=== PATIENT | male | born 1950 | race Caucasian/White ===

== ENCOUNTER 2020-11-08 12:56 | Emergency (ER) | payer OTHER ==
[~2020-11-08] VITALS: Ht 180.3 cm; Wt 90.7 kg
[2020-11-08] MEDS ORDERED: FLOMAX0.4 MG PO (14:44)
[2020-11-08] MEDS ORDERED: NOVOLOG100 UNIT/M SUBQ (14:45)
[2020-11-08] MEDS ORDERED: AVODART0.5 MG PO (14:45)
[2020-11-08] MEDS ORDERED: LANTUS SUBQ (14:45)
[2020-11-08] MEDS ORDERED: METFORMIN HCL500 MG PO (14:46)
[2020-11-08] MEDS ORDERED: LIPITOR 40 MG T40 M1 PO (14:46)
[2020-11-08] MEDS ORDERED: PRINIVIL40 MG PO (14:46)
[2020-11-08] MEDS ORDERED: ASA81BEC PO (14:47)
[2020-11-08] MEDS ORDERED: CARVEDILOL12.5 MG PO (14:47)
[2020-11-08] MEDS ORDERED: CLONAZEPAM 0.50.5 M1 PO (14:47)
[2020-11-08 20:37] VITALS: BP 179/87
== END 2020-11-08 20:42 ==
LOC: ER 12:56
DX: R45.851 Suicidal ideations (principal); E11.9 Type 2 diabetes mellitus without complications; I10 Essential (primary) hypertension; F32.9 Major depressive disorder, single episode, unspecified; Z79.4 Long term (current) use of insulin; Z79.82 Long term (current) use of aspirin; Z79.899 Other long term (current) drug therapy; Z20.822 Contact with and (suspected) exposure to COVID-19

== ENCOUNTER 2020-11-08 17:01 | Inpatient (IN) | payer OTHER ==
[~2020-11-08] VITALS: Ht 182.9 cm; Wt 90.8 kg
[~2020-11-08 17:01] MED LIST: ASA81BEC PO; AVODART0.5 MG PO; CARVEDILOL12.5 MG PO; CLONAZEPAM 0.50.5 M1 PO; FLOMAX0.4 MG PO; LANTUS SUBQ; LIPITOR 40 MG T40 M1 PO; METFORMIN HCL500 MG PO; NOVOLOG100 UNIT/M SUBQ; PRINIVIL40 MG PO
[2020-11-08 21:50] VITALS: BP 150/82
--- NOTE | 2020-11-08 21:53 | NUR ---
70 YEAR OLD MALE ARRIVES VIA WC TO UNIT ACCOMPNIED BY ER STAFF AT 2100-REPORTED TO HAVE BEEN DISCHARGED FROM [facility] THIS AM AND BECAME OVERWHELMED AND SUICIDAL UPON HIS RETURN HOME. HAD THOUGHTS OF INJECTING "ALL OF MY INSULIN" AND THAT SCARED ME SO I WENT OUTSIDE AND STARTED YELLING AND [facility] NEIGHBORS CALLED AN AMBULANCE. TEARFUL AND ANXIOUS AT TIMES THROUGHOUT INTERVIEW-IS COOPERATIVE AND ORIENTED X4-ABLE TO PROVIDE HISTORY AND [id number] INCIDENTS LEADING TO ADMIT. DENIES ACTIVE SI AT THIS TIME STATING "I FEEL SAFE HERE-ITS JUST WHEN I GET HOME I FEEL SO ALONE AND OVERWHELMED-I CAN'T HANDLE IT" GAIT STEADY WITHOUT ASSIST. BS OBTAINED AND PROVIDED WATER AND SNACK-VS AND HT/WT OBTAINED-Hussain BENTLEY CONTACTED-ADMIT ORDERS RECEIVED.
--- NOTE | 2020-11-09 00:15 | NUR ---
REMAINS AWAKE AND RESTLESS AT 2230-KLONOPIN 0.5MG PO PRN IN ADDITION TO SCHEDULED REMERON 7.5MG PO-WILL CONTINUE TO MONITOR.
--- NOTE | 2020-11-09 06:32 | NUR ---
APPEARS TO REST QUIETLY IN BED WITH EYES CLOSED FOR LONG INTERVALS THROUGHOUT NIGHT. RESPIRATIONS EVEN/REGULAR.
[2020-11-09 08:49] VITALS: BP 93/71
--- NOTE | 2020-11-09 14:10 | NUR ---
Assumed pt care at 0700. pt was alert and oriented x4. pt was calm and co-operative with care. pt took meds whole. no difficulty noted during multimedia author. pt ambulates with a steady gait. pt denies si/hi. denies pain. no sign of acuted distress noted during assessments. upon assessments pt stated his condition of overactive bladder syndrome makes him incontinent of urine sometimes. zguard was given to pt for preventative measure. pt participated in groups. will continue to monitor.
--- NOTE | 2020-11-09 15:06 | NUR ---
SW completed assessment and treatment plan.
--- NOTE | 2020-11-09 15:15 | NUR ---
SW received a call from Divine Rodriguez the sleeping car conductor at [facility] and [facility]. Divine reported patients [facility] [place], she report patient was discharged from and later called the ambulance reporting he is SI. Divine can be reached at [phone].
[2020-11-09 20:09] VITALS: BP 131/78
--- NOTE | 2020-11-10 03:14 | NUR ---
Assumed care for pt at 1900. Pt out in day room watching tv at start of shift. Pt cooperative with HS assessment and complaint with medications. Pt takes meds whole with water. Pt reports anxiety and feeling anxious. PRN Klonopin 0.5 mg administered. Pt reported upon follow up that PRN effective. Pt denies pain, depression, SI/HI at time of assessment. Pt HS blood sugar was 272 and pt received 6 Units of insulin per sliding scare. Pt has been calm and cooperative. Pt is concerned that he does not have orders for oxybutin, stating that he takes that with his flomax. Pt is wanting to follow up with doctor about this as he stats it helps his bladder spasms. Pt is on q14 minute checks for safety. Will continue to monitor for any changes in mood or behaviors.
[2020-11-10 09:21] VITALS: BP 154/95
--- NOTE | 2020-11-10 12:46 | NUR ---
ANXIOUS FACIAL EXPRESSION AND SPEECH IS LOUD SLIGHTLY PRESSURED HOWEVER DURING 1;1 INTERACTION WITH STAFF DENIES FEELING ANXIOUS RATING ANXIETY A 4OR5 ON 1-10 SCALE. DENIES SI/SH THOUGHTS STATING "I HAVENT HAD ANY SINCE I GOT TO THE HOSPITAL IT IS JUST WHEN I'M HOME-I WOULDN'T TRUST MYSELF TO GO BACK HOME RIGHT NOW" DESCRIBES DEPRESSIVE SYMPTOMS "THE SAME WHEN I GOT HERE" "NOT ANY BETTER BUT NOT ANY WORSE" IS VISIBLE IN [place] BUT USUALLY SITS ALONE-AWAY FROM PEERS WITH LITTLE NOTED SOCIAL INTERACTION. DENIES PAIN. GAIT STEADY. BLOOD SUGARS CHECKED AC MEALS PER ORDER-IS EXPRESSING FRUSTRATION OVER DIET SELECTIONS STATING "NO WONDER MY BLOOD SUGAR IS HIGH-I SHOULDN'T HAVE ANY OF THIS" REFERRING TO LUNCH PROVIDED.
[2020-11-10 13:58] VITALS: BP 139/82
--- NOTE | 2020-11-10 16:36 | NUR ---
DURING 11 THIS PM PT MENTIONS THAT HE FELT BETTER AFTER HE STARTED ON LEXAPRO AT [facility]- STATES HE DOES NOT KNOW WHY LEXAPRO WAS NOT ON CURRENT MED LIST WHEN ADMITTED HERE-WILEY OBTAINED AND FAXED TO [facility] TO OBTAIN COMPLETE LIST OF DISCHARGE MEDICATIONS.
[2020-11-10 19:41] VITALS: BP 115/67
--- NOTE | 2020-11-11 03:32 | NUR ---
Assumed care of pt at 1900. Pt in his room at time of shift change. Pt calm and cooperative with assessments and medication complain. Pt reports anxiety at a 6. Pt rates depression as a 6-7. Pt denies SI in hospital setting and feels safe here; pt does state he does not know what he would do outside hospital. Pt had PRN Klonipin 0.5 mg at HS for anxiety which was effective. Last BM was on 11/10/20. Pt on 12 minute rounds for safety. Continue to monitor for changes in mood/behaviors.
[2020-11-11 11:36] VITALS: BP 126/85
[2020-11-11 12:00] VITALS: BP 126/85
[2020-11-11 19:49] VITALS: BP 147/78
[2020-11-11 20:20] VITALS: BP 147/78
--- NOTE | 2020-11-12 04:57 | NUR ---
PATIENT SAT UP IN DINING ROOM THIS EVENING WATCHING TV AND SOCIALIZING. HE HAS BEEN CALM AND COOPERATIVE. HE DENIES SI/HI/AVH. HE DENIES PAIN. HE DID GET WEEPY WHEN TALKING ABOUT HOW HE WAS WORRIED ABOUT HIS CAT AND STATING THAT THE CAT DIDN'T UNDERSTAND WHAT WAS GOING ON AND HE WAS WANTING TO MAKE SURE IT IS OK. HE THINKS HIS NEIGHBOR IS FEEDING IT. HE IS ALSO CONCERNED ABOUT IF HE WILL HAVE A PLACE TO GO AFTER THIS VISIT.HE STATES HE HAS NO ELECTRICITY,WATER,OR HEAT IN HIS HOME AND THAT THE ROOF IS COMING DOWN. PT IS A/0X4. HE TOOK HIS MEDS WHOLE WITH WATER. HE DENIES PAIN. STATES HE HAD A BM ON 11/11/20. BED IN LOW POSITION. ROUTINE ROUNDS TO ASSESS SAFETY AND STATUS OF PATIENT.
[2020-11-12 10:05] VITALS: BP 154/86
--- NOTE | 2020-11-12 17:06 | NUR ---
MT recieved a call from Divine Rodriguez, [facility] window caser. Divine provided history on the Pt. Pt's lives in a hoarder house with no utilies. Divine is working on getting the home condemed. Pt does not want to go back to his home. SW did speak to Pt. Pt confirmed he is willing to go to a long-term at this time but would like to eventually transition to an apartment .
--- NOTE | 2020-11-12 17:16 | NUR ---
SW sent a referral to [facility]. Pt was accepted by [facility] and Chava.
--- NOTE | 2020-11-12 18:28 | NUR ---
Alert and orientated X4. Denies SI/HI. Up ambulating in unit with regular, steady gait. Conversive with peers and staff. Takes meds whole. Breath sounds clear. Reg HR auscultated. Color pink with brisk capillary refill and palpable peripheral pulses. Independent with voiding. Active bowel sounds over soft, rounded abdomen. Currently concerned about appointment at for tomorrow afternoon. No s/o distress.
[2020-11-12 19:37] VITALS: BP 147/76
[2020-11-13 00:32] VITALS: BP 147/76
--- NOTE | 2020-11-13 01:23 | NUR ---
Assumed care on 11/12/20 @ 1900, Retired to bed @ 1999, awakened to give meds @ 2100, then returned to sleep. Awakened @ about midnight and spent some time in the day room. Speaks loudly disturbing the sleeping community. Socializing with peers who are also awake in the day room. Returns to bed and is sleeping at this writing. Will continue to monitor as per unit protocol for safety and comfort.
--- NOTE | 2020-11-13 15:24 | NUR ---
0900 MT spoke with Divine Rodriguez and informed Pt has been accepted to a facility. Also that Pt need someone to go to a neighbors home to pepper picker his wallet, medications, and cell phone. Divine stated she would be able to pick those items up and bring them to the hospital. 1100 SW and Pt called Divine left a message with the neighbors address. 1245 SW recieved a call from Divine. Divine stated she was at the Pt's home and the neighbor did not have Pt's property. SW had Pt come to office to speak with Divine. Divine and a neighbor searched the Pt's home and did not find the wallet or cell phone. Divine was able to find Pt's medication and will bring to the hospital. Pt was a bit disappointed about the wallet and cell phone but stated he could call the bank for a replacement card.
--- NOTE | 2020-11-13 15:35 | NUR ---
MT spoke with Sadie Tate, , with [facility] concerning discharge. Sadie stated [facility] can accept Pt on 11/14/2020. D/C set for 11/14/2020 @ 10 am. [facility] will [facility] he Pt
--- NOTE | 2020-11-13 16:10 | NUR ---
Alert and orientated X4. Denies SI/HI. Irritated this AM. Exaggerated behavior. States his R hip hurts and then slaps his R buttock to show where pain is. Refuses tylenol but states it is a 7-8/10. Also wrote down shoulder pain but did not mention, only hip pain. Also states he is light headed but is able to ambulate with regular gait. No s/o resp distress but wrote down that he is short of breath. Focused on COVID vaccine, states he has appointment today and wants to leave hospital to get it and then come back. Settled down mid morning and has been calm remainder of shift. Breath sounds clear. Reg HR auscultated. Color pink with brisk capillary refill and palpable peripheral pulses. Independent with voiding. Active bowel sounds over soft, rounded abdomen. States he had a BM this AM. Participating in groups. Home medications delivered by telephonic case manager. Clonazepam delivered to pharmacy. Rest of meds locked up in [facility] pending discharge tomorrow.
[2020-11-13 19:48] VITALS: BP 151/88
[2020-11-13 23:31] VITALS: BP 151/88
--- NOTE | 2020-11-14 03:35 | NUR ---
Assumed care for pt at 1900. Pt up in dining room watching tv and interacting with peers. Pt A&O x3. Pt compliant with assessment and medications. Pt up throughout most of night and slept very little. Pt very focused on his pending discharge tomorrow and has asked staff several questions about things he is worried about, such as his phone, wallet and whether or not he will have any clothing to wear when he discharges from hospital. Pt can become somewhat irritable at times, but has been easily redirected. Pt is on q 12 min checks for safety. Pt denies depression, SI/HI. Pt denied pain at time of assessment, but stated he had had right hip pain and bilateral shoulder pain earlier. Will continue to monitor pt for changes mood and behaviors.
[2020-11-14 08:10] VITALS: BP 168/90
[2020-11-14] MEDS ORDERED: NAPROXEN250 MG PO (08:58)
[2020-11-14] MEDS ORDERED: LEXAPRO 10 MG T10 M1 PO (08:58)
[2020-11-14] MEDS ORDERED: GLUCOPHAGE1000 MG PO (08:59)
[2020-11-14] MEDS ORDERED: GLYBURIDE 5 MG T5 M1 PO (08:59)
[2020-11-14] MEDS ORDERED: OXYBUTYNIN 5 MG5 M1 PO (09:00)
--- NOTE | 2020-11-14 10:25 | NUR ---
DISCHARGE INSTRUCTIONS REVIEWED WITH PT HE STATES UNDERSTANDING AND DENIES QUESTIONS/CONCERNS. PERSONAL BELONGINGS AND MEDICATIONS SECURED AND SENT WITH PT AT TIME OF DC. ASSISTED WITH SHAVE AND PROVIDED WITH CLOTHING TO WEAR HOME. DENIES SI/SH/HI AT TIME OF DC. DOES REPORT FEELING ANXIOUS RE NEW PLACEMENT STATING "IM WORRIED IM NEVER GOING TO BE ABLE TO GET OUT OF THERE" DENIES PAIN AT TIME OF DC. KLONOPIN 0.5MG GIVEN PO PRN AT 0930 WITH AM MEDS FOR ANXIETY RATED A 10 ON 1-10 SCALE R/T DC. DOES STATE IT "IS HELPING BUT IM STILL REALLY NERVOUS" AT TIME OF DC.
--- NOTE | 2020-11-16 14:37 | D ---
[facility] [place] [address] DISCHARGE SUMMARY Name: ROC FLORES Room #: 524B-B [facility] IN M.R.#: [id number] Admission: 11/08/20 Attend Phys: Cayetano Roth DO Discharge: 11/14/20 Date of : 48 Report #: [id number] THIS REPORT FOR: cc: Meliza Farrell Mohammad K. DO Kerstein, Andrew H. DO ~ DATE OF SERVICE: 11/14/2020 INPATIENT PSYCHIATRIC DISCHARGE SUMMARY ATTENDING PHYSICIAN: Cayetano Roth DO. MEDICAL DERMATOLOGIST: Kristy Zurita MD DISCHARGE DIAGNOSES: Mild neurocognitive disorder, unspecified depression. Medical comorbidities include hypertension, diabetes mellitus, hyperlipidemia, and benign prostatic hypertrophy. DISCHARGE PLAN: The patient is discharging to the [facility] and medical care per receiving facility. DIET: 2000-calorie diabetic diet. DISCHARGE MEDICATIONS: Tamsulosin 0.4 mg oral twice daily for BPH, dutasteride 0.5 mg oral daily, lisinopril 40 mg oral daily, atorvastatin 40 mg oral daily, aspirin 81 mg oral daily, naproxen 250 b.i.d. for up to 14 days for arthritic pain, escitalopram, Lexapro 10 mg oral daily, metformin 1000 mg oral twice daily, glyburide 5 mg oral daily with breakfast, and oxybutynin 5 mg oral twice daily. Recommend Accu-Cheks. Blood sugars at least daily. Laboratories on this admission, glucose 114. Serology: COVID-19 PCR negative. REASON FOR ADMISSION: Transfer from [facility], depressed, wanting to kill himself, was outside screaming. Neighbor called 911. HOSPITAL COURSE: The patient was admitted to the Geriatric Psychiatry Unit. Apparently, he has prior home as uninhabitable without utilities. The patient scored in the mild cognitive impairment range on the SLUMS. Roc meets criteria for an RCF, however, high school social science teacher was able to find a fci. The patient was counseled on the importance of avoiding alcohol, tobacco, illicit drugs. Plans with diabetes management. On the day of discharge, he is stable, not an imminent danger to self or others. [facility] [address] [place] [address] DISCHARGE SUMMARY Name: ROC FLORES Room #: 524B-B DIS IN M.R.#: [id number] Admission: 11/08/20 Attend Phys: Cayetano Roth DO Discharge: 11/14/20 Date of : 48 Report #: [id number] PHYSICAL EXAMINATION: VITAL SIGNS: Temperature 36.3, pulse 72, respirations 18, BP 160/90, O2 sat 100%. MUSCULOSKELETAL: Normal gait and station. MENTAL STATUS EXAMINATION: This is a well-developed, unkempt male. Attention is intact. Concentration is intact. Speech is loud, slow rate, normal tone. Thought process is linear and goal directed. Thought content: Focused on his needs met. No psychomotor agitation or psychomotor retardation. Mood and affect: Congruent, anxious. Denied SI or HI. Denied auditory, visual, or tactile hallucinations. Memory not formally tested on the day of discharge. Insight limited. Judgment fair to limited. Fund of knowledge, probably above average. PROGNOSIS: For this patient is guarded, will depend on him staying in a structured setting, compliance with medication, psychiatric and medical care. <ELECTRONICALLY SIGNED> By: Cayetano Roth DO 11/16/20 1437 1950 2030 Cayetano Roth DO /nt
== END 2020-11-14 10:48 | DRG 885 ==
LOC: SBH 17:01
PROVIDERS: ADMIT Psychiatry & Neurology Psychiatry; ATTEND Psychiatry & Neurology Psychiatry
DX: F33.9 Major depressive disorder, recurrent, unspecified (principal); R45.851 Suicidal ideations; I10 Essential (primary) hypertension; E78.5 Hyperlipidemia, unspecified; E11.9 Type 2 diabetes mellitus without complications; N40.0 Benign prostatic hyperplasia without lower urinary tract symptoms; G31.84 Mild cognitive impairment of uncertain or unknown etiology; Z60.2 Problems related to living alone; I25.10 Atherosclerotic heart disease of native coronary artery without angina pectoris; F41.9 Anxiety disorder, unspecified; Z79.82 Long term (current) use of aspirin; Z79.899 Other long term (current) drug therapy; Z81.8 Family history of other mental and behavioral disorders; Z95.5 Presence of coronary angioplasty implant and graft
CPT/HCPCS: 10880